=== PATIENT | female | born 2000 | race Two or more races ===

== ENCOUNTER 2023-01-10 12:05 | Emergency (ER) | payer MEDICAID ==
[~2023-01-10] VITALS: Ht 152.4 cm; Wt 50.0 kg
[2023-01-10 13:13] LABS: URINE HCG NEGATIVE (NEG)
[2023-01-10 13:18] LABS: BASOPHILS % (AUTO) 0.3 % (0-1); EOSINOPHILS # (AUTO) 0.1 X10'3 (0-0.9); EOSINOPHILS % (AUTO) 0.8 % (0-6); HEMATOCRIT 38.8 % (35.0-45.0); HEMOGLOBIN 13.9 g/dl (12.0-16.0); LYMPHOCYTES % (AUTO) 10.9 % (21-51); MEAN CORPUSCULAR HEMOGLOBIN 31.6 PG (27.0-31.0); MEAN CORPUSCULAR HGB CONC 35.7 g/dL (33.0-36.5); MEAN CORPUSCULAR VOLUME 88.5 FL (78-98); MEAN PLATELET VOLUME 7.2 FL (7.4-10.4); MONOCYTES # (AUTO) 0.6 X10'3 (0-0.9); MONOCYTES % (AUTO) 5.8 % (2-12); NEUTROPHILS # (AUTO) 7.9 X10'3 (1.8-7.7); NEUTROPHILS % (AUTO) 82.2 % (42-75); PLATELET COUNT 227 X10'3 (140-440); RED BLOOD COUNT 4.39 X10'6 (4.20-5.60); RED CELL DISTRIBUTION WIDTH 12.5 % (11.5-14.5); WHITE BLOOD COUNT 9.6 X10'3 (4.5-11.0)
[2023-01-10 13:23] LABS: CLARITY,URINE CLEAR (Clear); COLOR,URINE YELLOW (Yellow); GLUCOSE, URINE NEGATIVE (Neg); KETONES,URINE NEGATIVE (Neg); LEUKOCYTE ESTERASE ,URINE NEGATIVE (Neg); NITRITES, URINE NEGATIVE (Neg); OCCULT BLOOD,URINE NEGATIVE (Neg); PH,URINE 5.5 (4.8-8.0); PROTEIN,URINE NEGATIVE (Neg); UROBILINOGEN,URINE 0.2 E.U/dL (0.2-1.0)
[2023-01-10 13:24] LABS: UA COLLECTION TYPE CLN CATCH MIDSTREAM
[2023-01-10 13:30] LABS: ALANINE AMINOTRANSFERASE 26 U/L (12-78); ALBUMIN 4.3 G/DL (3.4-5.0); ALBUMIN/GLOBULIN RATIO 1.3 (1.1-1.5); ALKALINE PHOSPHATASE 61 IU/L (46-116); ANION GAP 8 (8-16); ASPARTATE AMINO TRANSFERASE 27 U/L (10-37); BILIRUBIN,TOTAL 0.6 MG/DL (0.1-1.0); BLOOD UREA NITROGEN 14 MG/DL (7-18); BUN/CREATININE RATIO 20.6 (6.6-38.0); CALCIUM 9.4 MG/DL (8.5-10.1); CHLORIDE 103 MMOL/L (99-107); CREATININE 0.68 MG/DL (0.40-0.90); GLUCOSE 102 MG/DL (70-104); LIPASE 108 U/L (73-393); MAGNESIUM 1.9 MG/DL (1.5-2.4); POTASSIUM 3.7 MMOL/L (3.5-5.1); SODIUM 139 MMOL/L (135-145); TOTAL CARBON DIOXIDE 27.7 MMOL/L (24-32); TOTAL PROTEIN 7.7 G/DL (6.4-8.2); eGFR > 90 ML/MIN
[2023-01-10] MEDS ORDERED: ONDA4TAB12 PO (15:08)
[2023-01-10] MEDS ORDERED: bisacodyl 10mg suppository rectal RC ONE (15:10)
[2023-01-10] MEDS ORDERED: dicyclomine 10 MG capsule PO ONE (15:10)
[2023-01-10 15:28] VITALS: BP 115/83
== END 2023-01-10 15:46 | disposition home or self-care (01) ==
LOC: ER 12:06
DX: R10.84 Generalized abdominal pain (principal); K59.00 Constipation, unspecified; F12.90 Cannabis use, unspecified, uncomplicated; F17.200 Nicotine dependence, unspecified, uncomplicated; Z72.89 Other problems related to lifestyle; Z88.0 Allergy status to penicillin; Z79.899 Other long term (current) drug therapy
CPT/HCPCS: 36415; 80053; 81003; 81025; 83690; 83735; 85025; 99283

== ENCOUNTER 2024-09-08 05:17 | Emergency (ER) | payer MEDICAID ==
[~2024-09-08] VITALS: Ht 152.4 cm; Wt 57.4 kg
[~2024-09-08 05:17] MED LIST: ONDA-243 PO
[2024-09-08 05:29] VITALS: TEMP 97.8
[2024-09-08] MEDS: ondansetron/PF 4mg/2ml inj IV ONE (06:01)
[2024-09-08] MEDS: normal saline 1000ML IV soln IVB ONE ×2 (06:01→08:14)
[2024-09-08 06:03] LABS: BASOPHILS % (AUTO) 0.4 % (0-1); EOSINOPHILS # (AUTO) 0.1 X10'3 (0-0.9); HEMATOCRIT 41.5 % (35.0-45.0); HEMOGLOBIN 14.3 g/dl (12.0-16.0); LYMPHOCYTES # (AUTO) 1.3 X10'3 (1.1-4.8); LYMPHOCYTES % (AUTO) 19.4 % (21-51); MEAN CORPUSCULAR HEMOGLOBIN 30.9 PG (27.0-31.0); MEAN CORPUSCULAR HGB CONC 34.5 g/dL (33.0-36.5); MEAN CORPUSCULAR VOLUME 89.6 FL (78-98); MEAN PLATELET VOLUME 7.6 FL (7.4-10.4); MONOCYTES # (AUTO) 0.5 X10'3 (0-0.9); MONOCYTES % (AUTO) 8.1 % (2-12); NEUTROPHILS # (AUTO) 4.6 X10'3 (1.8-7.7); NEUTROPHILS % (AUTO) 71.1 % (42-75); PLATELET COUNT 253 X10'3 (140-440); RED BLOOD COUNT 4.64 X10'6 (4.20-5.60); RED CELL DISTRIBUTION WIDTH 12.7 % (11.5-14.5); WHITE BLOOD COUNT 6.5 X10'3 (4.5-11.0)
[2024-09-08 06:09] LABS: URINE HCG NEGATIVE (NEG)
[2024-09-08 06:34] LABS: BILIRUBIN,URINE SMALL (Neg); CLARITY,URINE SLIGHTLY CLOUDY (Clear); COLOR,URINE YELLOW (Yellow); GLUCOSE, URINE NEGATIVE (Neg); KETONES,URINE 15 mg/dl (Neg); LEUKOCYTE ESTERASE ,URINE NEGATIVE (Neg); NITRITES, URINE NEGATIVE (Neg); OCCULT BLOOD,URINE NEGATIVE (Neg); PH,URINE 5.5 (4.8-8.0); PROTEIN,URINE NEGATIVE (Neg); UROBILINOGEN,URINE 0.2 E.U/dL (0.2-1.0)
[2024-09-08 06:36] LABS: URINE AMPHETAMINE SCREEN NEGATIVE (Neg); URINE BARBITUATE SCREEN NEGATIVE (Neg); URINE BENZODIAZEPINES SCREEN NEGATIVE (Neg); URINE CANNABINOID SCREEN POSITIVE (Neg); URINE COCAINE SCREEN NEGATIVE (Neg); URINE METHADONE SCREEN NEGATIVE (Neg); URINE OPIATE SCREEN NEGATIVE (Neg); URINE PHENCYCLIDINE SCREEN NEGATIVE (Neg)
[2024-09-08 06:43] LABS: UA COLLECTION TYPE CLN CATCH MIDSTREAM
[2024-09-08 06:47] LABS: BACTERIA,URINE 2+ /HPF (Neg); MUCUS STRANDS MANY /LPF (Neg); RBC,URINE NONE SEEN /HPF (0-2); SQUAMOUS EPITHELIAL CELL,UR MODERATE /LPF (FEW); WBC,URINE 0-4 /HPF (0-4)
[2024-09-08 06:51] LABS: ALANINE AMINOTRANSFERASE 21 U/L (12-78); ALBUMIN 4.4 G/DL (3.4-5.0); ALBUMIN/GLOBULIN RATIO 1.3 (1.1-1.5); ALKALINE PHOSPHATASE 62 IU/L (46-116); ANION GAP 13 (8-16); ASPARTATE AMINO TRANSFERASE 19 U/L (10-37); BLOOD UREA NITROGEN 11 MG/DL (7-18); BUN/CREATININE RATIO 13.3 (10.0-20.0); CALCIUM 8.9 MG/DL (8.5-10.1); CHLORIDE 102 MMOL/L (99-107); CREATININE 0.83 MG/DL (0.40-0.90); GLUCOSE 101 MG/DL (70-104); LIPASE 39 U/L (16-77); POTASSIUM 3.4 MMOL/L (3.5-5.1); SODIUM 137 MMOL/L (135-145); TOTAL CARBON DIOXIDE 22.2 MMOL/L (24-32); TOTAL PROTEIN 7.9 G/DL (6.4-8.2); eCRCL 75 ML/MIN; eGFR 84 ML/MIN
[2024-09-08 07:47] LABS: MAGNESIUM 2.1 MG/DL (1.5-2.4)
[2024-09-08] MEDS: haloperidol lactate 5mg/ml inj IM ONE (08:12)
[2024-09-08] MEDS: magnesium sulf-water 2g/50mL 50 ML IV ONE (08:12)
[2024-09-08] MEDS: ketorolac trometh 15mg/ml vial 15 MG/ML ML IV ONE (08:13)
[2024-09-08] MEDS: diphenhydrAMINE 50 mg/ml inj IV ONE (08:14)
[2024-09-08] MEDS: proCHLORperazine 10 MG/2 ml inj IV ONE (08:14)
[2024-09-08 08:33] VITALS: BP 109/65; PULSE 85; RESP 18; O2SAT 100
== END 2024-09-08 09:11 | disposition home or self-care (01) ==
LOC: ER 05:17
DX: K29.00 Acute gastritis without bleeding (principal); R11.15 Cyclical vomiting syndrome unrelated to migraine; R42 Dizziness and giddiness; F12.90 Cannabis use, unspecified, uncomplicated; Z88.0 Allergy status to penicillin; Z79.899 Other long term (current) drug therapy
CPT/HCPCS: 36415; 80053; 80305; 81001; 81025; 83690; 83735; 85025; 96361; 96365; 96366; 96372; 96375; 99284; J0780; J1200; J1630; J1885; J2405; J7030

== ENCOUNTER 2024-09-14 10:02 | Emergency (ER) | payer MEDICAID ==
[~2024-09-14] VITALS: Ht 152.4 cm; Wt 56.9 kg
[2024-09-14] MEDS ORDERED: HYDR-3686 PO (11:31)
[2024-09-14] MEDS ORDERED: PROC-8 PO (11:31)
[2024-09-14] MEDS: hydrOXYzine 10 MG tablet PO PRN (11:35)
[2024-09-14] MEDS: proCHLORperazine 10mg tablet PO ONE (11:35)
[2024-09-14 11:56] VITALS: BP 113/80; PULSE 110; RESP 16; TEMP 98.6; O2SAT 99
== END 2024-09-14 11:58 | disposition home or self-care (01) ==
LOC: ER 10:03
DX: F41.9 Anxiety disorder, unspecified (principal); R11.0 Nausea; F12.90 Cannabis use, unspecified, uncomplicated; Z88.0 Allergy status to penicillin; Z72.89 Other problems related to lifestyle; Z79.899 Other long term (current) drug therapy
CPT/HCPCS: 99283; Q0164

== ENCOUNTER 2025-01-12 06:14 | Emergency (ER) | payer MEDICAID ==
[~2025-01-12] VITALS: Ht 152.4 cm; Wt 51.1 kg
[~2025-01-12 06:14] MED LIST changes: +PROC-8 PO
[2025-01-12] MEDS: proCHLORperazine 10mg tablet PO ONE (07:12)
[2025-01-12 07:42] LABS: BILIRUBIN,URINE NEGATIVE (Neg); COLOR,URINE YELLOW (Yellow); GLUCOSE, URINE NEGATIVE (Neg); KETONES,URINE >=80 mg/dl (Neg); LEUKOCYTE ESTERASE ,URINE NEGATIVE (Neg); NITRITES, URINE NEGATIVE (Neg); OCCULT BLOOD,URINE NEGATIVE (Neg); PROTEIN,URINE TRACE mg/dl (Neg); UROBILINOGEN,URINE 0.2 E.U/dL (0.2-1.0)
[2025-01-12 07:45] LABS: CLARITY,URINE SLIGHTLY CLOUDY (Clear); UA COLLECTION TYPE CLN CATCH MIDSTREAM
[2025-01-12 07:59] LABS: URINE HCG NEGATIVE (NEG)
[2025-01-12 08:08] LABS: AMORPHOUS URATES 1+; BACTERIA,URINE 1+ /HPF (Neg); RBC,URINE 0-2 /HPF (0-2); TRANSITIONAL EPI CELLS,URINE FEW /HPF; WBC,URINE 0-4 /HPF (0-4)
[2025-01-12 08:10] LABS: SQUAMOUS EPITHELIAL CELL,UR MANY /LPF (FEW)
[2025-01-12 08:11] LABS: MUCUS STRANDS MANY /LPF (Neg)
[2025-01-12] MEDS: proCHLORperazine 10 MG/2 ml inj IM ONE (08:38)
[2025-01-12] MEDS ORDERED: PROC-8 PO (09:58)
[2025-01-12 10:10] VITALS: BP 112/74; PULSE 82; RESP 16; TEMP 98.2; O2SAT 99
== END 2025-01-12 10:12 | disposition home or self-care (01) ==
LOC: ER 06:15
DX: S29.012A Strain of muscle and tendon of back wall of thorax, initial encounter (principal); R11.0 Nausea; Z87.891 Personal history of nicotine dependence; Z88.0 Allergy status to penicillin; X58.XXXA Exposure to other specified factors, initial encounter; Y93.89 Activity, other specified; Y92.89 Other specified places as the place of occurrence of the external cause; Y99.8 Other external cause status
CPT/HCPCS: 71101; 81001; 81025; 96372; 99284; J0780; Q0164

== ENCOUNTER 2025-02-18 06:36 | Emergency (ER) | payer MEDICAID ==
[~2025-02-18] VITALS: Ht 152.4 cm; Wt 54.2 kg
[2025-02-18] MEDS: normal saline 1000ml 1,000 ML IV ONE (07:26)
[2025-02-18] MEDS: OLANZapine **IM** 10 mg inj. IM ONE (08:06)
[2025-02-18] MEDS ORDERED: ONDA-243 PO (09:52)
[2025-02-18 10:03] VITALS: BP 130/72; PULSE 105; RESP 16; TEMP 97.7; O2SAT 100
== END 2025-02-18 10:06 | disposition home or self-care (01) ==
LOC: ER 06:37
DX: R11.2 Nausea with vomiting, unspecified (principal); F12.90 Cannabis use, unspecified, uncomplicated; Z88.0 Allergy status to penicillin; Z79.899 Other long term (current) drug therapy; Z72.89 Other problems related to lifestyle
CPT/HCPCS: 71045; 96360; 96372; 99283; J3490; J7030

== ENCOUNTER 2025-03-25 08:30 | Emergency (ER) | payer MEDICAID ==
[~2025-03-25] VITALS: Ht 152.4 cm; Wt 51.6 kg
--- NOTE | 2025-03-25 08:47 | ELECTROCARDIOGRAPH REPORT ---
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 Johnathan Tolentino Measurements Intervals [place] Chuck Rate: 71 P: 23 OH: 101 QRS: 62 QRSD: 88 T: 70 QT: 395 QTc: 430 Interpretive Statements Sinus rhythm Short OH interval Nonspecific T abnrm, anterolateral leads ST elev, probable normal early repol pattern Electronically Signed On 03-25-2025 18:45:[address] Johnathan Tolentino Please click the below link to view image of tracing.
[2025-03-25] MEDS: normal saline 1000ML IV soln IVB ONE (09:08)
[2025-03-25] MEDS: diphenhydrAMINE 50 mg/ml inj IV ONE (09:08)
[2025-03-25] MEDS: metoclopramide 5 mg/ml inj IV ONE (09:10)
[2025-03-25] MEDS: diazepam inj 5 MG/ML inj. IV ONE (09:13)
--- NOTE | 2025-03-25 09:44 | Physician Documentation ---
History of Present Illness ~ Chief Complaint: Syncope Stated Complaint: SYNCOPE Time Seen by MD: 08:35 OK to notify your PCP?: Yes Primary Medical Doctor: Stacia rivera Mode of Arrival: EMS HPI 24-year-old female patient with a history of severe anxiety panic disorder who missed her Zoloft couple of dosage brought to the emergency room because of passing out after hyperventilation and anxiety attack this morning. She has been having vomiting as well. No headaches no chest pain. No trauma or injuries. She has history of passing out after panic attack more than 20 times in the past. According to her grammar patient was hyperventilating and then extremities clawing up and pass out. She told me that she is not and she just finished her menses. Medication Reconciliation Allergies: Coded Allergies: Penicillins (Verified Allergy, Unknown, 03/25/25) Scheduled ONDANSETRON ODT 4mg tablet (Ondansetron Odt), 1 TABLET PO TID Scheduled PRN ONDANSETRON ODT 4mg tablet (Ondansetron Odt), 1 TAB PO TID PRN for nausea/vomiting ONDANSETRON ODT 4mg tablet (Ondansetron Odt), 1 TAB PO Q6H PRN PRN for nausea/vomiting Prochlorperazine Maleate (Compazine), 1 TAB PO QID PRN PRN for nausea Prochlorperazine Maleate (Compazine), 1 TAB PO QID PRN PRN for nausea/vomiting Past Medical History Past Medical History: No Pertinent History Past Surgical History: no surgical history Alcohol Use: Occasionally Drug Use: marijuana Lives In: Home Review of Systems ROS As stated above in the HPI, otherwise all systems are reviewed and negative. Physical Exam Vital Signs: Temperature: 98.1, Source: Oral, Heart Rate: 78, Respiratory Rate: 20, BP: 119/84, Pulse Oximetry: 100, Weight: 51.600 Oxygen Flow Rate: 0 Physical Exam Reviewed vital signs and they are well within normal range. Const: Nauseated, well nourished well built adult female not in acute cardiopulmonary distress Head: Atraumatic Eyes: Normal Conjunctiva ENT: Normal External Ears, Nose and Mouth. Moist mucous membranes Neck: Full range of motion. No meningismus Resp: Clear to auscultation bilaterally. Normal work of breathing Cardio: Regular rate and rhythm, no murmurs. Skin well perfused Abd: Soft, non-tender, non-distended. Normal bowel sounds. No rebound or guarding Skin: No petechiae or rashes. Warm and dry Back: No midline or flank tenderness Ext: No cyanosis, or edema Neuro: Awake and alert Psych: Normal Mood and Affect Progress Results/Orders Results/Orders Completed Orders - DARVIN ORTIZ MD Stat Ekg (03/25/25 ) Cbc/Diff (03/25/25 08:57) BMP (03/25/25 08:57) Normal Saline 1000ml (Sodium Chloride 10 (03/25/25 09:00) Diazepam Inj (Valium Inj) (03/25/25 09:00) Metoclopramide Inj (Reglan Inj) (03/25/25 09:00) Diphenhydramine Inj (Benadryl Inj.) (03/25/25 09:00) Medications Received in ER Medications (Trade) Dose Ordered Sig/Geeta Route PRN Reason Start Time Stop Time Status Last Admin Dose Admin (sodium chloride 1000ml IV soln) 1,000 ml ONCE ONCE IVB 03/25/25 09:00 03/25/25 09:01 DC 03/25/25 09:08 1,000 ML (Valium inj) 5 mg ONCE ONCE IV 03/25/25 09:00 03/25/25 09:01 DC 03/25/25 09:13 5 MG (Reglan inj) 10 mg ONCE ONCE IV 03/25/25 09:00 03/25/25 09:02 DC 03/25/25 09:10 10 MG (Benadryl inj.) 50 mg ONCE ONCE IV 03/25/25 09:00 03/25/25 09:01 DC 03/25/25 09:08 50 MG Vital Signs 03/25/25 03/25/25 03/25/25 03/25/25 08:31 08:43 08:55 09:16 Temp 98.1 98.1 Pulse 80 66 78 Resp 13 16 24 20 B/P (MAP) 107/67 107/67 (80) 119/84 (96) Pulse Ox 100 100 100 O2 Flow Rate 0 0 03/25/25 03/25/25 09:44 10:19 Pulse 67 61 Resp 20 18 B/P (MAP) 99/62 (74) 100/67 (78) Pulse Ox 99 100 O2 Flow Rate 0 0 Laboratory Tests Test 03/25/25 09:18 White Blood Count 10.6 Red Blood Count 4.39 Hemoglobin 13.7 Hematocrit 39.5 Mean Corpuscular Volume 90.0 Mean Corpuscular Hemoglobin 31.2 H Mean Corpuscular Hemoglobin Concent 34.6 Red Cell Distribution Width 13.0 Platelet Count 277 Mean Platelet Volume 8.4 Neutrophils (%) (Auto) 91.1 H Lymphocytes (%) (Auto) 5.7 L Monocytes (%) (Auto) 2.9 Eosinophils (%) (Auto) 0 Basophils (%) (Auto) 0.3 Neutrophils # (Auto) 9.7 H Lymphocytes # (Auto) 0.6 L Monocytes # (Auto) 0.3 Eosinophils # (Auto) 0.0 Basophils # (Auto) 0.0 CBC Comment Sodium Level 138 Potassium Level 3.6 Chloride Level 105 Carbon Dioxide Level 19.9 L Anion Gap 13 Blood Urea Nitrogen 15 Creatinine 0.81 Estimated GFR/1.73 m2 87 BUN/Creatinine Ratio 18.5 Glucose Level 146 H Calcium Level 8.8 Albumin 4.1 Chemistry Comments Medical Decision Making Findings During the physical examination, the findings suggestive of acute life- threatening condition such as JVD, tracheal deviation, acidotic breathing, noisy stridorous breath sounds, pulses paradoxus, muffled heart sounds, unequal breath sounds, abdominal rigidity and rebound tenderness, focal neurological deficits, cool clammy skin, severe hypotension, severe tachycardia or bradycardia are absent. Patient does not have any acute emergent medical condition requiring immediate resuscitative measures. She does look well and nontoxic. Her CBC showed WBC 10.6 H and H13.7 39.5 and platelets 277. Sodium 138 potassium 3.6 chloride 105 bicarb 19.9 BUN 15 creatinine 0.86 and glucose 146. Patient is given IV rehydration in metoclopramide with Benadryl and she is feeling much better. Patient will be discharged home with instruction to take Zoloft without fail and also we will be provided with as needed Xanax to to control the acute situation. DISCLAIMER Inadvertent spelling and grammatical errors,inadvertent metal pourer errors,syntax errors, grammatical errors, and spelling errors are likely due to EMR/dictation software use and do not reflect on the overall quality of patient care. Note that the electronic time recorded on this note does not necessarily reflect the actual time of the patient encounter. Departure Disposition: 01 HOME / SELF CARE / HOMELESS Impression: Primary Impression: Vasovagal syncopes Additional Impression: Panic disorder Condition: Stable Discharge Instructions: Panic Attack, [id number], Syncope, Adult, [id number] Additional Instructions: Thank you so much for visiting [facility] Emergency room. Please ask your nurse or provider if you have questions about your care today and do not leave until all your questions have been answered. Please use any medications given as directed and follow-up with your doctor in the next 1-3 days. Indications for more urgent follow-up have been discussed, but you may return to the Emergency Department at ANY time for any worrisome or worsening symptoms. Drink lots of fluids to keep yourself well hydrated as well. Take Zoloft regularly. Cannabis are not good for panic/generalized anxiety disorder. Referrals: NO PRIMARY CARE PROVIDER (PCP) Prescriptions Metoclopramide HCl (Reglan) 10 Mg Tablet 1 TAB PO Q6H PRN for nausea/vomiting, #30 TAB 0 Refills before food and bedtime Prov: DARVIN ORTIZ MD 03/25/25 Alprazolam (Xanax) 1 Mg Tablet 1 TAB PO TID PRN PRN for anxiety, #20 TAB 0 Refills Prov: DARVIN ORTIZ MD 03/25/25 Signature Scribe Signature: no Attestation: DARVIN Fuller MD March 25, 2025 09:44
[2025-03-25 09:48] LABS: BASOPHILS % (AUTO) 0.3 % (0-1); EOSINOPHILS % (AUTO) 0 % (0-6); HEMATOCRIT 39.5 % (35.0-45.0); HEMOGLOBIN 13.7 g/dl (12.0-16.0); LYMPHOCYTES # (AUTO) 0.6 X10'3 (1.1-4.8); LYMPHOCYTES % (AUTO) 5.7 % (21-51); MEAN CORPUSCULAR HEMOGLOBIN 31.2 PG (27.0-31.0); MEAN CORPUSCULAR HGB CONC 34.6 g/dL (33.0-36.5); MEAN PLATELET VOLUME 8.4 FL (7.4-10.4); MONOCYTES # (AUTO) 0.3 X10'3 (0-0.9); MONOCYTES % (AUTO) 2.9 % (2-12); NEUTROPHILS # (AUTO) 9.7 X10'3 (1.8-7.7); NEUTROPHILS % (AUTO) 91.1 % (42-75); PLATELET COUNT 277 X10'3 (140-440); RED BLOOD COUNT 4.39 X10'6 (4.20-5.60); WHITE BLOOD COUNT 10.6 X10'3 (4.5-11.0)
[2025-03-25 09:54] LABS: ALBUMIN 4.1 G/DL (3.4-5.0); ANION GAP 13 (8-16); BLOOD UREA NITROGEN 15 MG/DL (7-18); BUN/CREATININE RATIO 18.5 (10.0-20.0); CALCIUM 8.8 MG/DL (8.5-10.1); CHLORIDE 105 MMOL/L (99-107); CREATININE 0.81 MG/DL (0.40-0.90); GLUCOSE 146 MG/DL (70-104); POTASSIUM 3.6 MMOL/L (3.5-5.1); SODIUM 138 MMOL/L (135-145); TOTAL CARBON DIOXIDE 19.9 MMOL/L (24-32); eCRCL 77 ML/MIN; eGFR 87 ML/MIN
[2025-03-25] MEDS ORDERED: METO-292 PO (10:40)
[2025-03-25] MEDS ORDERED: ALPR1TAB2 PO (10:40)
[2025-03-25 10:57] VITALS: BP 102/60; PULSE 67; RESP 17; O2SAT 100
[2025-03-25 11:12] VITALS: TEMP 98.1
== END 2025-03-25 11:13 | disposition home or self-care (01) ==
LOC: ER 08:30
DX: R55 Syncope and collapse (principal); F41.0 Panic disorder [episodic paroxysmal anxiety]; F12.90 Cannabis use, unspecified, uncomplicated; Z88.0 Allergy status to penicillin; Z79.899 Other long term (current) drug therapy; Z72.89 Other problems related to lifestyle
CPT/HCPCS: 36415; 80048; 85025; 93005; 96361; 96374; 96375; 99285; J1200; J2765; J3360; J7030

== ENCOUNTER 2025-05-29 09:13 | Emergency (ER) | payer MEDICAID ==
[~2025-05-29] VITALS: Ht 152.4 cm; Wt 50.0 kg
[~2025-05-29 09:13] MED LIST changes: +ALPR1TAB2 PO; +METO-292 PO
[2025-05-29 09:24] VITALS: TEMP 97.8
[2025-05-29] MEDS: ondansetron/PF 4mg/2ml inj IV ONE (10:20)
[2025-05-29 10:26] LABS: MEAN PLATELET VOLUME 7.8 FL (7.4-10.4); RED CELL DISTRIBUTION WIDTH 12.8 % (11.5-14.5)
[2025-05-29 10:28] LABS: HCG SERUM QL NEGATIVE
[2025-05-29 10:39] LABS: CREATININE 0.83 MG/DL (0.40-0.90); TOTAL CARBON DIOXIDE 20.5 MMOL/L (24-32); eCRCL 74 ML/MIN; eGFR 84 ML/MIN
--- NOTE | 2025-05-29 10:41 | Physician Documentation ---
History of Present Illness General Chief Complaint: Vomiting Stated Complaint: POSS SYNCOPE Time Seen by MD: 10:37 Primary Medical Doctor: Stacia [facility] Mode of Arrival: Ambulatory History of Present Illness Initial Comments The patient is a 25-year-old female with a history of cyclic vomiting, panic disorder and passing out after panic attacks (more than 20 times in the past). The patient admits to smoking marijuana daily. This episode of nausea and vo miting began this morning. Medication Reconciliation Allergies: Coded Allergies: Penicillins (Verified Allergy, Unknown, 05/29/25) Scheduled ONDANSETRON ODT 4mg tablet (Ondansetron Odt), 1 TABLET PO TID Scheduled PRN Alprazolam (Xanax), 1 TAB PO TID PRN PRN for anxiety Metoclopramide HCl (Reglan), 1 TAB PO Q6H PRN for nausea/vomiting ONDANSETRON ODT 4mg tablet (Ondansetron Odt), 1 TAB PO TID PRN for nausea/vomiting ONDANSETRON ODT 4mg tablet (Ondansetron Odt), 1 TAB PO Q6H PRN PRN for nausea/vomiting Prochlorperazine Maleate (Compazine), 1 TAB PO QID PRN PRN for nausea Prochlorperazine Maleate (Compazine), 1 TAB PO QID PRN PRN for nausea/vomiting Past Medical History Past Medical History: No Pertinent History Past Surgical History: no surgical history Alcohol Use: Occasionally Drug Use: marijuana Lives In: Home Review of Systems ROS Constitutional: Denies chills, fatigue, fever, weight gain or weight loss. HEENT: Denies hearing loss, sinus pressure or visual changes. Respiratory: Denies cough, shortness of breath or wheezing. Cardiovascular: Denies chest pain, pain while walking (claudication), edema or palpitations. Gastrointestinal: Nausea and vomiting, no blood. Genitourinary: Denies painful urination (dysuria), excessive amount of urine (polyuria) or urinary frequency. Metabolic/Endocrine: Denies cold intolerance, heat intolerance, excessive thirst (polydipsia) or excessive hunger (polyphagia). Neurological: Denies dizziness, extremity numbness, extremity weakness, headaches, seizures or tremors. Psychiatric: Denies anxiety or depression. Integumentary: Denies breast discharge, breast lump, hives, mole change(s), rash or skin lesion. Musculoskeletal: Denies back pain, joint pain, joint swelling or neck pain. Hematologic: Denies easily bleeding, easily bruises, lymphedema or issues with blood clots. Immunologic: Denies food allergies or seasonal allergies. Physical Exam Physical Exam Vital Signs: Temperature: 97.8, Source: Temporal, Heart Rate: 78, Respiratory Rate: 15, BP: 127/93, Pulse Oximetry: 100, Weight: 50.000 Physical Exam Physical Exam Vitals and nursing note reviewed. Constitutional: General: Patient is awake, alert, oriented x 4 in no acute distress and well appearing. Speech is clear and lucid. Appearance: Normal appearance. Patient is not ill-appearing, toxic-appearing or diaphoretic. HENT: Head: Normocephalic and atraumatic. Mouth/Throat: Mouth: Mucous membranes are moist. Pharynx: Oropharynx is clear. Eyes: General: No scleral icterus. Extraocular Movements: Extraocular movements intact. Pupils: Pupils are equal, round, and reactive to light. Neck: Supple, no Kernig or Brudzinski sign. Cardiovascular: Rate and Rhythm: Normal rate and regular rhythm. Heart sounds: No murmur heard. Pulmonary: Effort: No respiratory distress. Breath sounds: No wheezing, rhonchi or rales. Abdominal: General: There is no distension. Palpations: There is no fluid wave, hepatomegaly or mass. Tenderness: There is no abdominal tenderness. There is no guarding. Musculoskeletal: General: No swelling or deformity. Skin: Coloration: Skin is not jaundiced. Findings: No erythema or rash. Neurological: Mental Status: Patient is alert. Progress Results/Orders Results/Orders Completed Orders - GINETTE ARTIS MD Cbc/Diff (05/29/25 09:27) BMP (05/29/25 09:27) Amylase (05/29/25 09:27) Lipase (05/29/25 09:27) Hcg Serum Ql (05/29/25 09:27) CMP (05/29/25 09:27) Ondansetron Inj. (Zofran 4mg/2ml Vial) (05/29/25 10:15) Normal Saline 1000ml (Sodium Chloride 10 (05/29/25 10:50) Ua W/Microscopic, Cult If Ind (05/29/25 10:26) Prochlorperazine Inj (Compazine Inj) (05/29/25 11:35) Diphenhydramine Inj (Benadryl Inj.) (05/29/25 11:35) Medications Received in ER Medications (Trade) Dose Ordered Sig/Geeta Route PRN Reason Start Time Stop Time Status Last Admin Dose Admin (Zofran 4mg/2ml vial) 4 mg ONCE ONCE IV 05/29/25 10:15 05/29/25 10:16 DC 05/29/25 10:20 4 MG Sodium Chloride 1,000 ml @ 1,000 mls/hr ONCE ONCE IV 05/29/25 10:50 05/29/25 11:49 DC 05/29/25 10:53 1,000 MLS/HR (Compazine inj) 10 mg ONCE ONCE IV 05/29/25 11:35 05/29/25 11:36 DC 05/29/25 12:03 10 MG (Benadryl inj.) 50 mg ONCE ONCE IV 05/29/25 11:35 05/29/25 11:36 DC 05/29/25 12:02 50 MG Vital Signs 05/29/25 05/29/25 05/29/25 05/29/25 09:24 10:02 10:36 12:05 Temp 97.8 Pulse 93 78 96 Resp 18 15 15 18 B/P (MAP) 126/72 127/93 (104) 123/65 (84) Pulse Ox 96 100 98 Laboratory Tests Test 05/29/25 10:04 05/29/25 10:26 White Blood Count 11.3 H Red Blood Count 4.74 Hemoglobin 14.6 Hematocrit 42.6 Mean Corpuscular Volume 89.8 Mean Corpuscular Hemoglobin 30.8 Mean Corpuscular Hemoglobin Concent 34.3 Red Cell Distribution Width 12.8 Platelet Count 290 Mean Platelet Volume 7.8 Neutrophils (%) (Auto) 85.0 H Lymphocytes (%) (Auto) 11.4 L Monocytes (%) (Auto) 3.2 Eosinophils (%) (Auto) 0.1 Basophils (%) (Auto) 0.3 Neutrophils # (Auto) 9.6 H Lymphocytes # (Auto) 1.3 Monocytes # (Auto) 0.4 Eosinophils # (Auto) 0.0 Basophils # (Auto) 0.0 CBC Comment Sodium Level 136 Potassium Level 3.4 L Chloride Level 100 Carbon Dioxide Level 20.5 L Anion Gap 16 Blood Urea Nitrogen 12 Creatinine 0.83 Estimated GFR/1.73 m2 84 BUN/Creatinine Ratio 14.5 Glucose Level 146 H Calcium Level 9.2 Total Bilirubin 0.6 Aspartate Amino Transf (AST/SGOT) 20 Alanine Aminotransferase (ALT/SGPT) 22 Alkaline Phosphatase 80 Total Protein 8.1 Albumin 4.6 Globulin 3.5 Albumin/Globulin Ratio 1.3 Amylase Level 110 Lipase 39 Human Chorionic Gonadotropin, Qual Negative Chemistry Comments Urine Specimen Description Urinal Urine Color Yellow Urine Clarity Slightly cloudy Urine pH 7.5 Urine Specific Pansey 1.020 Urine Protein Trace Urine Glucose (UA) Negative Urine Ketones 40 H Urine Occult Blood Negative Urine Nitrite Negative Urine Bilirubin Negative Urine Urobilinogen 0.2 Urine Leukocyte Esterase Negative Urine RBC 0-2 Urine WBC 0-4 Urine Squamous Epithelial Cells Many Urine Transitional Epithelial Cells Few Urine Bacteria 3+ Urine Mucus Moderate Urine Culture Indicated Not ind Volume Urine Centrifuged 10 ml Urine Comment Medical Decision Making Findings This 25-year-old female with a history of cyclic vomiting presents today with symptoms that are similar to recurrent symptoms in the past. She has been treated with Zofran and fluids. Laboratory data are reassuring. 1:37 p.m.: The patient feels much better and would like to go home. I did recommend that she discontinue using marijuana. Departure Disposition: HOME / SELF CARE / HOMELESS Impression: Primary Impression: Cyclical vomiting Condition: Improved Referrals: NO PRIMARY CARE PROVIDER (PCP) Education Educated: Patient, Family Educated regarding: diagnosis, treatment, prognosis, need for follow up Signature Scribe Signature: . Attestation: . GINETTE ARTIS MD May 29, 2025 10:41
[2025-05-29 10:50] LABS: LEUKOCYTE ESTERASE ,URINE NEGATIVE (Neg); NITRITES, URINE NEGATIVE (Neg); OCCULT BLOOD,URINE NEGATIVE (Neg)
[2025-05-29] MEDS: normal saline 1000ml 1,000 ML IV ONE (10:53)
[2025-05-29 10:57] LABS: UA COLLECTION TYPE URINAL
[2025-05-29 10:58] LABS: MUCUS STRANDS MODERATE /LPF (Neg); SQUAMOUS EPITHELIAL CELL,UR MANY /LPF (FEW)
[2025-05-29 13:58] VITALS: BP 126/67; PULSE 67; RESP 15; O2SAT 98
== END 2025-05-29 14:02 | disposition home or self-care (01) ==
LOC: ER 09:13
DX: R11.15 Cyclical vomiting syndrome unrelated to migraine (principal); F12.90 Cannabis use, unspecified, uncomplicated; Z88.0 Allergy status to penicillin; Z79.899 Other long term (current) drug therapy; Z72.89 Other problems related to lifestyle
CPT/HCPCS: 36415; 80053; 81001; 82150; 83690; 84703; 85025; 96361; 96374; 96375; 99284; J0780; J1200; J2405; J7030